=== PATIENT | male | born 2000 | race Hispanic/Latino ===

== ENCOUNTER 2022-10-20 13:41 | Emergency (ER) | payer OTHER ==
[~2022-10-20] VITALS: Ht 180.3 cm; Wt 63.5 kg
[2022-10-20 14:26] VITALS: BP 130/88
[2022-10-20] MEDS ORDERED: IBUP-2070 PO (15:04)
== END 2022-10-20 15:12 | disposition home or self-care (01) ==
LOC: EDH 13:41
DX: S61.012A Laceration without foreign body of left thumb without damage to nail, initial encounter (principal); W45.8XXA Other foreign body or object entering through skin, initial encounter; Y93.89 Activity, other specified; Y92.89 Other specified places as the place of occurrence of the external cause; Y99.8 Other external cause status
CPT/HCPCS: 12002

== ENCOUNTER 2022-10-31 11:12 | Emergency (ER) | payer OTHER ==
[~2022-10-31] VITALS: Ht 180.3 cm; Wt 65.8 kg
[~2022-10-31 11:12] MED LIST: IBUP-2070 PO
[2022-10-31 11:46] VITALS: BP 121/75
== END 2022-10-31 11:55 | disposition home or self-care (01) ==
LOC: EDH 11:12
DX: S61.012A Laceration without foreign body of left thumb without damage to nail, initial encounter (principal); Z79.1 Long term (current) use of non-steroidal anti-inflammatories (NSAID); X58.XXXD Exposure to other specified factors, subsequent encounter
CPT/HCPCS: 99281

== ENCOUNTER 2023-06-01 10:17 | Emergency (ER) | payer OTHER ==
[~2023-06-01] VITALS: Ht 177.8 cm; Wt 72.6 kg
[2023-06-01] MEDS ORDERED: IBUP-2070 PO (14:23)
[2023-06-01 14:45] VITALS: BP 116/74; PULSE 78; RESP 18; O2SAT 98
== END 2023-06-01 14:46 | disposition home or self-care (01) ==
LOC: EDH 10:17
DX: S50.02XA Contusion of left elbow, initial encounter (principal); X58.XXXA Exposure to other specified factors, initial encounter; Y93.89 Activity, other specified; Y92.89 Other specified places as the place of occurrence of the external cause; Y99.8 Other external cause status
CPT/HCPCS: 73070